=== PATIENT | male | born 1965 | race Caucasian/White ===

== ENCOUNTER 2020-02-22 06:05 | Day surgery (SDC) | payer BC ==
[2020-02-20 14:47] LABS: Urine Bacteria NONE SEEN /hpf (None Seen); Urine Blood TRACE /uL (Negative); Urine Mucus FEW (None Seen); Urine Specific Gravity 1.023 (1.001-1.035); Urine WBC <1 /hpf (0 - 3)
[2020-02-20 14:49] LABS: Basophils # (auto) 0.1 10 ^3/uL (0-0.2); Hemoglobin 16.3 g/dL (13.5-17.5); Lymphocytes # (auto) 1.2 10 ^3/uL (0.4-5.4)
[2020-02-20 14:51] LABS: Basophils % (auto) 0.8 % (0.0-2.0); Eosinophils # (auto) 0.1 10 ^3/uL (0-0.8); Lymphocytes % (auto) 17.3 % (10.0-50.0); Mean Corpuscular Hemoglobin 34.3 pg (28.0-32.0); Mean Corpuscular Hgb Conc. 33.9 g/dL (32.0-36.0); Mean Corpuscular Volume 101.1 fL (80.0-100.0); Monocytes # (auto) 0.6 10 ^3/uL (0-1.3); Neutrophils # (auto) 5.2 10 ^3/uL (1.6-8.6); Neutrophils % (auto) 72.9 % (37.0-80.0); Platelet Count (auto) 276 10^3/uL (140-450); Red Blood Cells 4.75 10^6/uL (4.5-5.90); Red Cell Distribution Width 12.8 % (11.8-14.3); White Blood Cell 7.1 10^3/uL (4.4-10.8)
[2020-02-20 15:04] LABS: Albumin 3.8 g/dL (3.4-5.0); Calcium 8.8 mg/dL (8.5-10.1); Partial Thromboplastin Time 26.8 sec (23.64-32.05); Potassium 3.9 mmol/L (3.5-5.1)
[2020-02-20 15:08] LABS: BUN/Creatinine Ratio 16.9; Bilirubin, Total 0.7 mg/dL (0.2-1.0); Total Protein 7.2 g/dL (6.4-8.2)
[~2020-02-22] VITALS: Ht 180.3 cm; Wt 74.8 kg
[2020-02-22] MEDS ORDERED: fentaNYL CITRATE 100 MCG/2 ML VL ONE (07:18)
[2020-02-22] MEDS ORDERED: GLYCOPYRROLATE 0.2 MG/ML 1ML VIAL ONE (07:18)
[2020-02-22] MEDS ORDERED: DexAMETHasone SOD PHOS 10MG/1ML VIAL INJ ONE (07:18)
[2020-02-22] MEDS ORDERED: KETAMINE HCL 10 ML ONE (07:18)
[2020-02-22] MEDS ORDERED: MIDAZOLAM HCL 1MG/1ML-2 ML VIAL ONE (07:18)
[2020-02-22] MEDS ORDERED: PROPOFOL 10 MG/ML 20 ML IV ONE (07:18)
[2020-02-22] MEDS ORDERED: ONDANSETRON HCL 4 MG/2 ML VIAL ONE (07:18)
[2020-02-22] MEDS ORDERED: KETOROLAC TROMETH 30 MG/ML 1ML VIAL ONE (07:18)
[2020-02-22] MEDS ORDERED: ROPIVACAINE 0.5% (5MG/ML) 20ML AMPULE IJ ONE (07:23)
[2020-02-22] MEDS ORDERED: NEOMYCIN-BACITRACIN-POLYM 15GM TOP OINT TOP ONE (07:23)
[2020-02-22] MEDS ORDERED: ceFAZolin 1GM/50ML 50 ML IV ONE (07:26)
[2020-02-22] MEDS ORDERED: MEPERIDINE HCL (50 MG/ML) 1 ML VIAL ONE (07:44)
[2020-02-22] MEDS ORDERED: methylPREDNISolone ACETATE 80 MG/ML VL ONE (08:01)
[2020-02-22] MEDS ORDERED: NALOXONE HCL 0.4 MG/ML VIAL ONE (08:06)
[2020-02-22] MEDS ORDERED: HYDROmorphone HCL 2 MG/ML VL IV PRN (08:30)
[2020-02-22] MEDS ORDERED: ONDANSETRON HCL 4 MG/2 ML VIAL IV PRN (08:30)
[2020-02-22 08:40] VITALS: BP 114/77
== END 2020-02-22 11:10 | disposition home or self-care (01) ==
LOC: SUR 06:05
PROVIDERS: ATTEND Podiatrist Foot & Ankle Surgery
DX: M72.2 Plantar fascial fibromatosis (principal); Z79.899 Other long term (current) drug therapy; Z98.890 Other specified postprocedural states; Z11.59 Encounter for screening for other viral diseases
CPT/HCPCS: 29893; 29999; 36415; 80053; 81001; 85025; 85610; 85730; J0690; J1040; J1100; J1885; J2175; J2250; J2310; J2405; J2704; J2795; J3010; U0003

== ENCOUNTER → 2020-04-18 | Day surgery (SDC) | payer BC ==
[2020-04-12 11:55] LABS: Eosinophils # (auto) 0.1 10 ^3/uL (0-0.8); Hematocrit 47.3 % (41.0-53.0); Mean Corpuscular Volume 103.1 fL (80.0-100.0); Monocytes # (auto) 0.6 10 ^3/uL (0-1.3); Platelet Count (auto) 247 10^3/uL (140-450); Red Blood Cells 4.59 10^6/uL (4.5-5.90)
[2020-04-12 11:56] LABS: Basophils # (auto) 0.1 10 ^3/uL (0-0.2); Eosinophils % (auto) 1.7 % (0.0-7.0); Hemoglobin 15.8 g/dL (13.5-17.5); Lymphocytes # (auto) 1.2 10 ^3/uL (0.4-5.4); Lymphocytes % (auto) 22.2 % (10.0-50.0); Mean Corpuscular Hemoglobin 34.4 pg (28.0-32.0); Mean Corpuscular Hgb Conc. 33.3 g/dL (32.0-36.0); Monocytes % (auto) 11.1 % (0.0-12.0); Neutrophils # (auto) 3.5 10 ^3/uL (1.6-8.6); White Blood Cell 5.5 10^3/uL (4.4-10.8)
[2020-04-12 12:01] LABS: Urine Bacteria NONE SEEN /hpf (None Seen); Urine Blood Negative /uL (Negative); Urine Specific Gravity 1.007 (1.001-1.035); Urine WBC <1 /hpf (0 - 3)
[2020-04-12 12:11] LABS: INR 0.97 (0.9-1.15); Partial Thromboplastin Time 25.3 sec (23.0-31.2)
[2020-04-12 12:15] LABS: Albumin 3.8 g/dL (3.4-5.0); Calcium 8.6 mg/dL (8.5-10.1); Potassium 4.4 mmol/L (3.5-5.1)
[2020-04-12 12:20] LABS: BUN/Creatinine Ratio 12.9; Bilirubin, Total 0.7 mg/dL (0.2-1.0); Total Protein 7.1 g/dL (6.4-8.2)
[~2020-04-18] VITALS: Ht 180.3 cm; Wt 74.8 kg
[~2020-04-18] MED LIST: DexAMETHasone SOD PHOS 10MG/1ML VIAL INJ ONE; MEPERIDINE HCL (25 MG/ML) 1ML VIAL ONE; MIDAZOLAM HCL 1MG/1ML-2 ML VIAL ONE; PROPOFOL 10 MG/ML 20 ML IV ONE; ROPIVACAINE 0.5% (5MG/ML) 20ML AMPULE IJ ONE; fentaNYL CITRATE 100 MCG/2 ML VL ONE; methylPREDNISolone ACETATE 80 MG/ML VL ONE
[2020-04-18 12:04] VITALS: BP 128/87
== END | disposition home or self-care (01) ==
LOC: SUR 08:19
PROVIDERS: ATTEND Podiatrist Foot & Ankle Surgery
DX: M72.2 Plantar fascial fibromatosis (principal); F17.210 Nicotine dependence, cigarettes, uncomplicated; Z98.890 Other specified postprocedural states; Z11.59 Encounter for screening for other viral diseases; Z79.899 Other long term (current) drug therapy
CPT/HCPCS: 29893; 29999; 36415; 80053; 81001; 85025; 85610; 85730; J1040; J1100; J2175; J2250; J2704; J2795; J3010; U0003

== ENCOUNTER 2024-11-22 18:36 | Inpatient (IN) | payer BC ==
[~2024-11-22] VITALS: Ht 177.8 cm; Wt 76.9 kg
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
[2024-11-22 19:21] LABS: Basophils # (auto) 0.1 10 ^3/uL (0-0.2); Basophils % (auto) 0.7 % (0.0-2.0); Eosinophils # (auto) 0.1 10 ^3/uL (0-0.8); Eosinophils % (auto) 1.2 % (0.0-7.0); Hematocrit 47.3 % (41.0-53.0); Hemoglobin 16.3 g/dL (13.5-17.5); Lymphocytes # (auto) 1.7 10 ^3/uL (0.4-5.4); Lymphocytes % (auto) 22.2 % (10.0-50.0); Mean Corpuscular Hemoglobin 34.3 pg (28.0-32.0); Mean Corpuscular Hgb Conc. 34.4 g/dL (32.0-36.0); Mean Corpuscular Volume 99.7 fL (80.0-100.0); Monocytes # (auto) 0.8 10 ^3/uL (0-1.3); Monocytes % (auto) 10.5 % (0.0-12.0); Neutrophils # (auto) 4.9 10 ^3/uL (1.6-8.6); Neutrophils % (auto) 65.4 % (37.0-80.0); Nucleated Red Blood Cells % 0.1 %; Platelet Count (auto) 232 10^3/uL (140-450); Red Blood Cells 4.75 10^6/uL (4.5-5.90); Red Cell Distribution Width 12.6 % (11.8-14.3); White Blood Cell 7.5 10^3/uL (4.4-10.8)
--- NOTE | 2024-11-22 19:50 | DVH ---
Exam: CT CT AB PEL WO CON-NO ORAL OR IV History: pain Comparison Study: None available at time of dictation. TECHNIQUE: Multidetector CT of the abdomen and pelvis without IV contrast. Axial, coronal and sagitta l multiplanar reformats were obtained from the axial data set by the technologist. Radiation Dose Information: CT Dose: CTDI volume is 8.05 mGy. Dose-length product is 440.01 mGy*cm FINDINGS: Bibasilar atelectasis. Partially visualized heart is unremarkable. Liver, spleen, gallbladder, pancreas and adrenal glands are unremarkable. Kidneys, ureters and urinary bladder unremarkable. Prostate measures 3.4 x 4.2 by 3.4 cm. Stomach is unremarkable. Small bowel loops unremarkable. Appendix is unremarkable. Mild wall thicken ing of the ascending and transverse colon. The remainder of the large bowel is unremarkable. No evidence of intraperitoneal free air or free fluid. No evidence of aortic aneurysm. Mild nonspecific fat stranding adjacent to the celiac and SMA with mi ld prominence of the celiac artery. No significant lymphadenopathy. The soft tissues unremarkable. No destructive osseous lesions are noted. Sclerotic focus of the left S1 which may represent a bone island. IMPRESSION: Mild colitis involving the ascending and transverse colons. There is mild nonspecific fat stranding adjacent to the celiac and SMA with mild prominence of the ce liac. CTA of the abdomen and pelvis is recommended for further evaluation.
[2024-11-22] MEDS: PANTOPRAZOLE 40 MG/10 ML VIAL INJ IV ONE (20:02)
[2024-11-22] MEDS: SODIUM CHLORIDE 0.9% 500 ML IVB ONE (20:03)
[2024-11-22 20:43] LABS: Alanine Aminotransferase 30 U/L (7-40); Albumin 4.5 g/dL (3.2-4.8); Alkaline Phosphatase 64 U/L (46-116); Anion Gap 9 (5-15); Aspartate Aminotransferase 20 U/L (13-40); Blood Urea Nitrogen 16 mg/dL (9-23); Calcium 9.5 mg/dL (8.7-10.4); Carbon Dioxide 25 mmol/L (20-31); Chloride 106 mmol/L (98-107); Glucose 100 mg/dL (74-106); Lipase 28 U/L (12-53); Potassium 4.1 mmol/L (3.5-5.1); Sodium 140 mmol/L (136-145); Total Protein 6.7 g/dL (5.7-8.2)
[2024-11-22 20:44] LABS: Bilirubin, Total 1.1 mg/dL (0.2-1.0)
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
[2024-11-22] MEDS ORDERED: MORPHINE SULFATE INJ 2 MG/ml SYRG IV PRN (22:15)
[2024-11-22] MEDS ORDERED: HYDROcodone-ACET 5/325MG TAB PO PRN (22:15)
[2024-11-22 22:20] LABS: Urine Bacteria None Seen /hpf (None Seen)
[2024-11-22] MEDS ORDERED: DOCUSATE SOD 100 MG CAP PO PRN (22:30)
[2024-11-22 22:32] LABS: Urine Blood Negative /uL (Negative); Urine Clarity Clear (Clear); Urine Color Yellow (Yellow); Urine Mucus FEW (None Seen); Urine Protein, UAD Negative (Negative); Urine Specific Gravity 1.019 (1.001-1.035); Urine Squamous Epithelial Cell None Seen /hpf (<5); Urine Urobilinogen Normal (Negative); Urine WBC < 1 /HPF (0-3); Urine pH 5.5 (5.0-9.0)
[2024-11-22 22:37] LABS: Triglycerides 104 mg/dL (< 150)
[2024-11-22 22:40] LABS: Cholesterol 207 mg/dL (< 200); HDL Cholesterol 37 mg/dL (40-59); LDL Cholesterol 154 mg/dL (< 100)
[2024-11-22 22:45] LABS: Amphetamine Screen, Urine Neg (NEGATIVE); Barbiturate Scree,Urine Neg (NEGATIVE); Benzodiazephine Screen, Urine Neg (NEGATIVE); Cannabinoid Screen, Urine Neg (NEGATIVE); Cocaine Screen, Urine Neg (NEGATIVE); Opiate Scree,Urine Neg (NEGATIVE); Phencyclidine Screen, Urine Neg (NEGATIVE)
[2024-11-23] VITALS (8 sets, daily range): BP systolic 121–149; BP diastolic 50–95; PULSE 60–76; RESP 16–18; TEMP 97.5–98.2; O2SAT 92–98
[2024-11-23] MEDS: ACETAMINOPHEN 325 MG TAB PO PRN (04:01)
[2024-11-23] MEDS: SODIUM CHLORIDE 0.9% 500 ML IV ONE (04:45)
[2024-11-23] MEDS: FOLIC ACID 1 MG in D5W 5% 50 ML INJ ONE (05:23)
[2024-11-23] MEDS: THIAMINE 100mg/ml INJ (200mg/2ml VIAL) IM ONE (05:24)
[2024-11-23] MEDS: DOCUSATE SOD 100 MG CAP PO ONE (05:25)
[2024-11-23] MEDS: SODIUM CHLORIDE 0.9% 1,000 ML IV ONE (05:25)
[2024-11-23] MEDS: metroNIDAZOLE 500MG/100ML 100 ML IV ONE (05:25)
[2024-11-23] MEDS: ONDANSETRON HCL 4 MG/2 ML VIAL IV ONE (05:25)
[2024-11-23] MEDS: PANTOPRAZOLE 40 MG/10 ML VIAL INJ IV ONE (05:25)
[2024-11-23] MEDS: D5W/LACTATED RINGERS 1,000 ML IV SCH (05:40)
[2024-11-23] MEDS: PIPERACILLIN-TAZOB 3.375GM 100 ML IV SCH (06:41)
[2024-11-23 07:29] LABS: Basophils # (auto) 0 10 ^3/uL (0-0.2); Basophils % (auto) 0.4 % (0.0-2.0); Eosinophils # (auto) 0.1 10 ^3/uL (0-0.8); Eosinophils % (auto) 1.2 % (0.0-7.0); Hematocrit 43.3 % (41.0-53.0); INR 1.03 (0.9-1.15); Lymphocytes # (auto) 1.6 10 ^3/uL (0.4-5.4); Lymphocytes % (auto) 23.5 % (10.0-50.0); Mean Corpuscular Hemoglobin 34.4 pg (28.0-32.0); Mean Corpuscular Hgb Conc. 34.6 g/dL (32.0-36.0); Mean Corpuscular Volume 99.4 fL (80.0-100.0); Monocytes # (auto) 0.7 10 ^3/uL (0-1.3); Monocytes % (auto) 11.3 % (0.0-12.0); Neutrophils # (auto) 4.2 10 ^3/uL (1.6-8.6); Neutrophils % (auto) 63.6 % (37.0-80.0); Platelet Count (auto) 222 10^3/uL (140-450); Prothrombin Time 10.9 sec (9.3-11.8); Red Blood Cells 4.35 10^6/uL (4.5-5.90); Red Cell Distribution Width 12.6 % (11.8-14.3); White Blood Cell 6.6 10^3/uL (4.4-10.8)
[2024-11-23 07:58] LABS: Alanine Aminotransferase 25 U/L (7-40); Alkaline Phosphatase 56 U/L (46-116); Anion Gap 11 (5-15); Aspartate Aminotransferase 16 U/L (13-40); Bilirubin, Total 1.1 mg/dL (0.2-1.0); Calcium 9.1 mg/dL (8.7-10.4); Carbon Dioxide 24 mmol/L (20-31); Chloride 105 mmol/L (98-107); Glucose 108 mg/dL (74-106); Potassium 3.9 mmol/L (3.5-5.1); Sodium 140 mmol/L (136-145); Total Protein 6.3 g/dL (5.7-8.2)
[2024-11-23 08:48] LABS: BUN/Creatinine Ratio 15.6 (10.0-20.0); Blood Urea Nitrogen 12 mg/dL (9-23)
[2024-11-23] MEDS: PANTOPRAZOLE 40 MG/10 ML VIAL INJ IV SCH (09:58)
[2024-11-23] MEDS: ENOXAPARIN SOD 40 MG/0.4 ML SYRINGE SC SCH (09:58)
[2024-11-23] MEDS: cefTRIAXone 1GM/50ML D5W 50 ML IV ONE (10:45)
[2024-11-23] MEDS: metroNIDAZOLE 500MG/100ML 100 ML IV SCH (14:00)
[2024-11-23] MEDS: ONDANSETRON HCL 4 MG/2 ML VIAL IV PRN (16:52)
--- NOTE | 2024-11-23 19:15 | DVH ---
EXAM: XY KUB ABDOMEN SINGLE VIEW HISTORY: Bowel obstruction COMPARISON: None TECHNIQUE: Single AP of the abdomen and pelvis was obtained. Findings: Frontal view of the abdomen demonstrates a paucity of bowel gas. No visualized renal calculi. There i s no evidence of an acute fracture, dislocation, blastic, or lytic lesions. No radiopaque foreign bodies. No superficial soft tissue abnormalities. Impression: 1. Paucity of bowel gas. Cannot exclude fluid filled loops of dilated bowel.
[2024-11-23] MEDS: KETOROLAC TROMETH 30 MG/ML 1ML VIAL IV PRN (20:53)
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
[2024-11-24] VITALS (7 sets, daily range): BP systolic 107–133; BP diastolic 68–92; PULSE 55–65; RESP 16–19; TEMP 97.6–98.1; O2SAT 92–99
[2024-11-24] MEDS: cefTRIAXone 1GM/50ML D5W 50 ML IV SCH (08:30)
[2024-11-24] MEDS: THIAMINE 100mg/ml INJ (200mg/2ml VIAL) IV SCH (08:33)
[2024-11-24] MEDS ORDERED: FOLIC ACID 1 MG in D5W 5% 50 ML INJ SCH (10:00)
--- NOTE | 2024-11-24 19:29 | DVH ---
Procedure: XY SMALL BOWEL SERIES-W GASTROGRA Exam Date: 11/24/2024 02:29 PM Reason for study/Clinical History: r/o SBO Comparison Study: None available at time of dictation. Technique: Single contrast small bowel series performed. Findings: Initial quality checker view of the abdomen and pelvis appears demonstrates no acute process. Contrast is identified within the colon by 30 min. This represents a normal small bowel transit time . Small bowel loops are normal in size. Normal mucosal pattern. No evidence of small bowel obstructi on, stricture, or mucosal abnormality. The terminal ileum is well visualized and is unremarkable. IMPRESSION: Normal small bowel series. END IMPRESSION:
--- NOTE | 2024-11-24 23:29 | DVHPNRES ---
Progress Note Date Seen: Nov 24, 2024 Resident Creating Document: AYDEE COOK RESIDENT Medical Necessity Reason Pt with a Central, PICC or Fol: No Subjective Review of Systems patient was kept NPO overnight and reported no pain Small bowel gastrograffin series was done which was normal patient passed stool following the gastrograffin escalating diet as tolerated, IV pain meds and IV hydration Objective vital signs Vital Sign Date Time Temp Pulse Resp B/P (MAP) Pulse Ox O2 Delivery O2 Flow Rate FiO2 11/24/24 21:00 97.6 65 19 119/88 (98) 96 97.6 11/24/24 08:00 Room Air* 0 21 Total Intake and Output 11/23/24 11/23/24 11/24/24 15:00 23:00 07:00 Intake Total 100 ml 540 ml 0 ml Balance 100 ml 540 ml 0 ml medications Current Medications Medications Dose Ordered Sig/Jeni Route Start Time Stop Time Status Last Admin Dose Admin Enoxaparin Sodium 40 mg DAILY SC 11/23/24 10:00 11/23/24 09:58 40 MG Pantoprazole Sodium 40 mg DAILY IV 11/23/24 10:00 11/24/24 08:33 40 MG Ondansetron HCl 4 mg Q4HPRN PRN IV 11/22/24 22:15 11/23/24 16:52 4 MG Dextrose/Lactated Ringer's 1,000 ml @ 100 mls/hr Q10H IV 11/23/24 05:00 11/24/24 11:02 100 MLS/HR Thiamine HCl 100 mg DAILY IV 11/24/24 10:00 11/24/24 08:33 100 MG Metronidazole 100 ml @ 100 mls/hr Q8HR IV 11/23/24 14:00 11/24/24 21:44 100 MLS/HR Ceftriaxone Sodium 50 ml @ 100 mls/hr DAILY@09 IV 11/24/24 09:00 11/24/24 08:30 100 MLS/HR Ketorolac Tromethamine 15 mg Q6HPRN PRN IV 11/23/24 17:30 11/28/24 17:29 11/24/24 15:48 15 MG Examination Constitutional: Patient was alert and oriented to time, place and person and does not appear to be in acute distress Gen - no pallor, no icterus, no cyanosis, no clubbing, no LAD, no edema . Skin - Patients skin is warm and dry.. HEENT - normocephalic, atraumatic, moist mucous membranes. Neck - full ROM, no LAD, no JVD Pulmonary - B/L vesicular breath sounds. no crackles , no wheezing, no stridor. cardiovascular - normal S1,S2 heard. no murmurs heard. peripheral pulses normal radial 2+, pedal 2+. GI - soft abdomen with tenderness to palpation in the right and the left iliac regions with guarding. no hepatospleenomegaly. Bowel sounds normoactive Neurological - Bilateral upper extremity strength 5/5, bilateral lower extremity strength 5/5, no facial droop, normal speech, no tremor, no sensory deficiets. laboratory and microbiology Laboratory Tests 11/23/24 06:10 Test 11/23/24 06:10 Range/Units Serum Glucose 108 H 74-106 mg/dL Problem List/Assessment/Plan Problem List/Assessment/Plan Assessment Acute intractable abdominal pain Colitis likely due to acute infection vs constipation ? Bowel obstruction CT abdomen pelvis without contrast showed Mild colitis involving the ascending and transverse colons. mild nonspecific fat stranding adjacent to the celiac and SMA with mild prominence of the celiac. KUB abdomen Paucity of bowel gas. Cannot exclude fluid filled loops of dilated bowel. Small Bowel Series IMPRESSION: Normal small bowel series. Plan - IV antibiotics ceftriaxone and metronidazole - IV fluids - small bowel series normal and the patient had a bowel movement. - on clear liquid diet, will be reassessed and if the patient still complains of abdominal pain following food intake, further imaging with CTA abdomen may be needed. PUD prophylaxis: Protonix 40 mg DVT prophylaxis: Enoxaparin 40 mg Goals of care discussed with the patient for over 25 minutes. Full code Plan discussed with Dr. Fregoso Plan discussed with: Patient My Orders My Orders Orders - AYDEE COOK RESIDENT Procedure Category Date Status Time Clear Liq Diet DIET 11/25/24 Transmitted Breakfast Dietary Evaluation Review Comments: 1) Advance diet as medically feasible 2) Continue current plan of care Expected Outcomes/Goals: Pt will meet >75% estimated needs Fu 2-3 days Date of Service: Nov 24, 2024 Billing Provider: DORIAN FREGOSO MD Common Visit Codes: [id number] INP/OBS CARE(HIGH) AYDEE COOK RESIDENT Nov 24, 2024 23:29 DORIAN FREGOSO MD Nov 25, 2024 10:55
[2024-11-25 01:00] VITALS: BP 115/77; PULSE 60; RESP 19; TEMP 97.6; O2SAT 97
[2024-11-25 05:00] VITALS: BP 120/83; PULSE 69; RESP 18; TEMP 97.6; O2SAT 97
[2024-11-25 06:46] LABS: Anion Gap 8 (5-15); Calcium 8.9 mg/dL (8.7-10.4); Carbon Dioxide 26 mmol/L (20-31); Potassium 3.6 mmol/L (3.5-5.1); Sodium 143 mmol/L (136-145)
[2024-11-25 06:48] LABS: Chloride 109 mmol/L (98-107)
[2024-11-25 06:53] LABS: BUN/Creatinine Ratio 20.3 (10.0-20.0); Blood Urea Nitrogen 15 mg/dL (9-23); Glucose 113 mg/dL (74-106)
[2024-11-25 06:58] LABS: Basophils # (auto) 0 10 ^3/uL (0-0.2); Basophils % (auto) 0.8 % (0.0-2.0); Eosinophils # (auto) 0.2 10 ^3/uL (0-0.8); Eosinophils % (auto) 4.6 % (0.0-7.0); Hematocrit 42.9 % (41.0-53.0); Hemoglobin 14.5 g/dL (13.5-17.5); Lymphocytes # (auto) 1.2 10 ^3/uL (0.4-5.4); Lymphocytes % (auto) 23.7 % (10.0-50.0); Mean Corpuscular Hemoglobin 33.9 pg (28.0-32.0); Mean Corpuscular Hgb Conc. 33.8 g/dL (32.0-36.0); Mean Corpuscular Volume 100.5 fL (80.0-100.0); Monocytes # (auto) 0.8 10 ^3/uL (0-1.3); Monocytes % (auto) 14.9 % (0.0-12.0); Neutrophils # (auto) 2.9 10 ^3/uL (1.6-8.6); Nucleated Red Blood Cells % 0.1 %; Platelet Count (auto) 236 10^3/uL (140-450); Red Blood Cells 4.27 10^6/uL (4.5-5.90); Red Cell Distribution Width 12.6 % (11.8-14.3); White Blood Cell 5.1 10^3/uL (4.4-10.8)
[2024-11-25] MEDS: GASTROGRAFIN 120 ML SOL ONE (07:56)
[2024-11-25 09:00] VITALS: BP 137/86; PULSE 53; RESP 16; TEMP 97.8; O2SAT 98
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
[2024-11-25 12:35] VITALS: BP 137/87; PULSE 58; RESP 17; TEMP 98.3; O2SAT 98
[2024-11-25] MEDS ORDERED: PANT40TA2 PO (12:44)
[2024-11-25] MEDS ORDERED: LACT10SO3 PO (12:44)
[2024-11-25] MEDS ORDERED: AUG875T PO (12:44)
== END 2024-11-25 15:41 | disposition home or self-care (01) | DRG 392 ==
LOC: ER 18:42 → OVERFLOW 22:03 → WEST WING 22:35
PROVIDERS: ADMIT Student in an Organized Health Care Education/Training Program; ATTEND Student in an Organized Health Care Education/Training Program
DX: A09 Infectious gastroenteritis and colitis, unspecified (principal); K59.00 Constipation, unspecified; Z87.891 Personal history of nicotine dependence; Z87.730 Personal history of (corrected) cleft lip and palate; Z79.899 Other long term (current) drug therapy
CPT/HCPCS: 36415; 74018; 74176; 74250; 80048; 80053; 80061; 80307; 80320; 81001; 82270; 83036; 83605; 83615; 83690; 84443; 85025; 85610; 96361; 96374; G0378; J1885; J2405; J2470; J2543; J3490; J7060